=== PATIENT | female | born 1955 | race Caucasian/White ===

== ENCOUNTER → 2022-06-03 08:09 | Outpatient (CLI) | payer OTHER, SELFPAY ==
--- NOTE | ~2022-06-03 | US_ITS ---
Abdominal Sonogram: Real-time sonographic imaging of the abdomen was performed. Clinical History: Abnormal serum enzymes Findings: The liver appears mildly echogenic, with no evidence of mass lesion or bile duct dilatatio n. Main portal vein demonstrates normal direction of flow. The spleen is normal in size without evide nce of focal lesion. The gallbladder is absent, compatible with prior cholecystectomy. The common bi le duct measures 5 mm. The visualized pancreas, aorta, and IVC are unremarkable. The right kidney m easures 12.1 cm in length and the left kidney measures 12.1 cm. There is no hydronephrosis or renal calculus. Left renal cyst noted. Impression: Suspected fatty infiltration of liver. Status post cholecystectomy. Reviewed, dictated and finalized at location . Impression: Suspected fatty infiltration of liver. Status post cholecystectomy.
== END ==
PROVIDERS: PCP Family Medicine; Visit Provider Nurse Practitioner Gerontology
DX: R74.8 Abnormal levels of other serum enzymes (principal); Z90.49 Acquired absence of other specified parts of digestive tract
CPT/HCPCS: 76700

== ENCOUNTER → 2022-07-22 10:00 | Outpatient (CLI) | payer OTHER, SELFPAY ==
--- NOTE | ~2022-07-22 | US_ITS ---
EXAMINATION: US thyroid DATE: 07/22/2022 10:24 INDICATION: Goiter. TECHNIQUE: Multiple ultrasound images of the thyroid were obtained. COMPARISON: Ultrasound 12/19/2011 FINDINGS: The right thyroid lobe measures 4.5 x 1.7 x 1.4 cm. The left thyroid lobe measures 7.2 x 3.3 x 3.5 c m. In the right thyroid lobe, there is a 4 mm nodule. In the left thyroid lobe, there is a 5.8 cm so lid, hypoechoic, wider than tall nodule with smooth margin without echogenic foci (TI-RADS TR4), incr eased from 3.3 cm on 12/19/11. In the left thyroid lobe, there is a 2.2 cm solid, isoechoic, wider lolita n tall nodule with smooth margin without echogenic foci (TR3), increased in size from 1.2 cm on . IMPRESSION: 1. Multinodular goiter. Consider ultrasound-guided fine-needle aspiration of the 5.8 cm left thyroid nodule. Reviewed, dictated and finalized at location A. IMPRESSION: 1. Multinodular goiter. Consider ultrasound-guided fine-needle aspiration of th e 5.8 cm left thyroid nodule.
== END ==
PROVIDERS: PCP Family Medicine; Visit Provider Family Medicine
DX: E01.0 Iodine-deficiency related diffuse (endemic) goiter (principal)
CPT/HCPCS: 76536

== ENCOUNTER 2022-09-10 09:20 | Outpatient (CLI) | payer OTHER, SELFPAY ==
--- NOTE | ~2022-09-10 | US_ITS ---
EXAMINATION: US FNA w image guidance DATE: 09/10/2022 10:32 INDICATION: 5.8 cm left thyroid mass TECHNIQUE: A time-out was performed to verify the patient's name, date of , and procedure to be performed . The procedure and its benefits and risks were discussed with the patient. Risks specifically discus sed included bleeding and infection. The patient understood the risks and agreed to proceed. The neck was prepped and draped in the usual sterile manner. 3 mL 1% lidocaine was used for local anesthesia . 6 passes were made with a 25G needle into the lesion. Appropriate needle location was documented with continuous sonographic guidance. A sterile bandage was applied. There were no immediate compli cations. FINDINGS: Grayscale ultrasound images demonstrate biopsy needles advanced into scattered locations within a 5.6 cm TI RADS 4 left thyroid mass. IMPRESSION: 1. Successful ultrasound-guided fine needle aspiration of a 5.6 cm TI RADS 4 left thyroid mass. Reviewed, dictated and finalized at location A. IMPRESSION: 1. Successful ultrasound-guided fine needle aspiration of a 5.6 cm TI RADS 4 l eft thyroid mass.
== END 2022-09-10 09:21 | disposition home or self-care (01) ==
PROVIDERS: PCP Family Medicine; Visit Provider Otolaryngology
DX: E04.1 Nontoxic single thyroid nodule (principal)
CPT/HCPCS: 10005; 88173; 88305